=== PATIENT | male | born 1975 | race Caucasian/White ===

== ENCOUNTER 2020-11-14 16:47 | Emergency (ER) | payer SELFPAY ==
--- NOTE | ~2020-11-14 | XR_ITS ---
EXAMINATION: XR finger 3rd LT min 2V DATE: 11/14/2020 17:20 INDICATION: Aspiration to the left third digit TECHNIQUE: Dorsal palmar, lateral and 2 oblique views of the left third digit were obtained COMPARISON: None FINDINGS: Soft tissue swelling and irregular skin contour at the distal tip of the left third digit consistent with reported laceration. Bone alignment is normal. No fracture. 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 Joint spaces appear otherwise relatively p reserved. Small chronic periarticular erosion with corticated margins at the ulnar side of the head o f the third middle phalanx. No radiopaque foreign bodies. IMPRESSION: 1. Laceration at the tip of the left third digit with no acute osseous abnormality or radiopaque fore ign body. Reviewed, dictated and finalized at location A. IMPRESSION: 1. Laceration at the tip of the left third digit with no acute osseous abnormal ity or radiopaque foreign body.
--- NOTE | 2020-11-14 17:06 | ED.UPPEXIN ---
HPI - Extremity Injury (Upper) General Chief Complaint: Wound/Laceration Stated Complaint: finger lacerartion Time Seen by Provider: 11/14/20 17:06 Source: patient and RN notes reviewed Mode of arrival: ambulatory Limitations: no limitations History of Present Illness HPI narrative: 44-year-old male presents to the [facility] with the tip of his left middle finger cut due to a router. Happened approximately 15 to 20 minutes prior to arrival. Finger is bleeding. Skin flap is in multiple sections. Has full range of motion of the DIP and PIP joint. Sensation intact lateral and medial finger. No sensation at the tip due to laceration. Denies any past medical history or surgical history Unknown last Tdap. Patient is refusing an update for Tdap Related Data Allergies Allergy/AdvReac Type Severity Reaction Status Date / Time No Known Allergies Allergy Verified 11/14/20 17:18 Review of Systems Review of Systems: All systems reviewed & are unremarkable except as noted in HPI and below Constitutional: Constitutional: Reports no additional constitutional complaints, Denies chills and Denies fever(s) Eyes: Eyes: Reports no additional eye complaints ENT: Reports system reviewed and no additional complaints, except as documented Cardiovascular: Cardiovascular: Reports no additional cardiovascular complaints Respiratory: Respiratory: Reports no additional respiratory complaints Musculoskeletal: Musculoskeletal: Reports as per HPI Integumentary/Breasts: Skin/Breast: Reports as per HPI Comments: Partial avulsion tip of finger left side Neurologic: Reports as per HPI and Reports numbness Psychiatric: Psychiatric: Reports no additional psychiatric complaints Endocrine: Endocrine: Reports no additional endocrine complaints Allergic/Immunologic: Allergic/Immunologic: Reports no additional allergic/immunologic complaints PMFSH Comments At the time of my signature, I reviewed and agree with the nursing past medical, surgical, social, and family history. There is no relevant family history pertinent to the patient complaint. Patient denies any past medical or surgical history Exam Const: General: healthy appearing, no acute distress and alert Nutritional Appearance: well nourished Orientation/consciousness: patient oriented x3 Limitations: no limitations HENMT: Head: normal to inspection Eyes: Pupils: Equal, round and reactive pupils present Neck: Neck: normal visual inspection, no lymphadenopathy and no meningeal signs Chest: Chest palpation & inspection: normal inspection of the chest Resp: Effort & Inspection: normal respiratory effort and no use of accessory muscles Auscultation: clear to auscultation bilaterally, no crackles, no rales, no rhonchi and no wheezes Cardio: Rate: regular rate Rhythm: regular rhythm Back/Spine/Pelvis: Back: no CVA tenderness Skin: General skin exam: normal color Wounds: wounds noted avulsion left distal 3rd finger bed beefy red, drainage bloody, without odor and open; without any surrounding erythema Neuro: General: patient oriented x3, moves all extremities, no meningeal signs and no focal motor deficits Speech: normal speech Extrem: General: normal to inspection and no pedal edema Psych: Appearance: grossly normal and well kempt Mental Status: mental status grossly normal Affect: normal affect Attitude: cooperative Thought content: Yes Normal thought content present Course Course Emergency Course: Discharge instructions reviewed with patient, as well as provided in writing per nursing staff. The instructions also include specific and strict return/GO TO THE ER as well as f/u information. All questions have been answered, and the patient deny any further questions with discharge and discharge plan. Patient declining tetanus vaccine at this time. Patient declined digital block, states he wants to try without any anesthesia. Vital Signs Vital signs: Vital Signs
[2020-11-14 17:10] VITALS: BP 130/81; PULSE 77; RESP 16; TEMP 37.1; O2SAT 99
--- NOTE | 2020-11-14 17:53 | PC.NURSE ---
Addendum entered by JOSE HERNANDEZ 11/14/20 18:06: he also refused the use of Lidocaine because of cost Original Note: patient refused tetanus and other medical supplies and tx due to the fact he is self pay
== END 2020-11-14 18:23 | disposition home or self-care (01) ==
PROVIDERS: Emergency Provider Nurse Practitioner
DX: S61.213A Laceration without foreign body of left middle finger without damage to nail, initial encounter (principal); W45.8XXA Other foreign body or object entering through skin, initial encounter
CPT/HCPCS: 12001; 73140; 99213; G0463